=== PATIENT | female | born 1985 | race Caucasian/White ===

== ENCOUNTER 2018-09-29 11:22 | Outpatient (CLI) | payer MEDICAID ==
[~2018-09-29] VITALS: Ht 144.8 cm; Wt 74.7 kg
[~2018-09-29 11:22] MED LIST: IBUP-1542 PO; NPH10OT RIGHT EAR
[2018-09-29 11:27] VITALS: BP 138/73; PULSE 73; RESP 18
[2018-09-29 11:29] VITALS: Ht 144.8 cm; Wt 74.7 kg
--- NOTE | 2018-09-29 16:35 | PN ---
Triage Information Date/Time September 29, 2018 Reason for visit: Patient here to triage for rule out PIH was sent from [facility] clinic. Had been followed in T clinic Weeks of Gestation 35 weeks /Para 5 para 2 Diabetes: none Hypertention: none Additional information 33-year-old G5, P2 with IUP at 35 weeks she was sent from T clinic due to borderline elevated blood pressure in the range of 130s over 40s over 80s to 90s. She denies any headache, blurred vision, epigastric pain or right upper quadrant pain. Patient denies any leaking of fluid, vaginal bleeding or decreased movement Patient reports swelling of her hands for the past few weeks as well as itching of the palms of her hands for the past month. She reports some numbness of the hands at nighttime specifically as well as itching of palms at night. She had not done labs for bile acids. Objective Vital Signs Date Temp Pulse Resp B/P (MAP) Pulse Ox O2 O2 Flow FiO2 Time Delivery Rate 09/29/18 97.8 73 18 138/73 Room Air 11:27 (94) Heart Rate: 130's Heart Rate Comments Category 1 and appropriate for gestational age Contractions: None Exam Appearance: Alert and oriented x4 does not appear to be in any acute distress Abdomen: Soft, gravid, fundal height consider gestational age NST: Category 1 BP: 8/8 SHANNON: 10.3 PIH labs are normal Laboratory Tests Test 09/29/18 11:41 09/29/18 12:27 Urine Color STRAW Urine Clarity CLEAR Urine pH 8.0 Urine Specific [place] 1.005 Urine Ketones NEGATIVE Urine Nitrite NEGATIVE Urine Bilirubin NEGATIVE Urine Urobilinogen NEGATIVE Urine Leukocyte Esterase NEGATIVE Urine Hemoglobin NEGATIVE Urine Glucose NEGATIVE Urine Total Protein NEGATIVE White Blood Count 8.4 Red Blood Count 4.10 L Hemoglobin 11.8 L Hematocrit 35.2 L Mean Corpuscular Volume 85.9 Mean Corpuscular Hemoglobin 28.8 L Mean Corpuscular Hemoglobin Concent 33.5 Red Cell Distribution Width 12.3 Platelet Count 259 Mean Platelet Volume 11.0 H Immature Granulocytes % 0.500 H Neutrophils % 68.6 Lymphocytes % 23.8 Monocytes % 5.6 Eosinophils % 1.1 Basophils % 0.4 Nucleated Red Blood Cells % 0.0 Immature Granulocytes # 0.040 H Neutrophils # 5.7 Lymphocytes # 2.0 Monocytes # 0.5 Eosinophils # 0.1 Basophils # 0.0 Nucleated Red Blood Cells # 0.0 Prothrombin Time 13.7 Prothrombin Time Ratio 1.1 INR International Normalized Ratio 1.04 Activated Partial Thromboplast Time 28.7 Fibrinogen 576.0 H Sodium Level 138 Potassium Level 3.9 Chloride Level 110 Carbon Dioxide Level 20 L Anion Gap 8 Blood Urea Nitrogen 7 Creatinine 0.45 Est Glomerular Filtrat Rate mL/min > 60 Glucose Level 90 Uric Acid 4.4 Calcium Level 8.9 Total Bilirubin 0.7 Direct Bilirubin 0.00 Indirect Bilirubin 0.7 Aspartate Amino Transf (AST/SGOT) 22 Alanine Aminotransferase (ALT/SGPT) 23 Alkaline Phosphatase 167 H Total Protein 6.7 Albumin 3.3 Globulin 3.40 H Albumin/Globulin Ratio 0.97 VS - Last 72 Hours, by Label Date Temp Pulse Resp B/P (MAP) Pulse Ox O2 O2 Flow FiO2 Time Delivery Rate 09/29/18 97.8 73 18 138/73 Room Air 11:27 (94) Results/Medications Result Diagram: 09/29/18 1227 09/29/18 1227 Results 24 hrs Laboratory Tests Test 09/29/18 11:41 09/29/18 12:27 Urine Color STRAW Urine Clarity CLEAR Urine pH 8.0 Urine Specific [place] 1.005 Urine Ketones NEGATIVE Urine Nitrite NEGATIVE Urine Bilirubin NEGATIVE Urine Urobilinogen NEGATIVE Urine Leukocyte Esterase NEGATIVE Urine Hemoglobin NEGATIVE Urine Glucose NEGATIVE Urine Total Protein NEGATIVE White Blood Count 8.4 Red Blood Count 4.10 L Hemoglobin 11.8 L Hematocrit 35.2 L Mean Corpuscular Volume 85.9 Mean Corpuscular Hemoglobin 28.8 L Mean Corpuscular Hemoglobin Concent 33.5 Red Cell Distribution Width 12.3 Platelet Count 259 Mean Platelet Volume 11.0 H Immature Granulocytes % 0.500 H Neutrophils % 68.6 Lymphocytes % 23.8 Monocytes % 5.6 Eosinophils % 1.1 Basophils % 0.4 Nucleated Red Blood Cells % 0.0 Immature Granulocytes # 0.040 H Neutrophils # 5.7 Lymphocytes # 2.0 Monocytes # 0.5 Eosinophils # 0.1 Basophils # 0.0 Nucleated Red Blood Cells # 0.0 Prothrombin Time 13.7 Prothrombin Time Ratio 1.1 INR International Normalized Ratio 1.04 Activated Partial Thromboplast Time 28.7 Fibrinogen 576.0 H Sodium Level 138 Potassium Level 3.9 Chloride Level 110 Carbon Dioxide Level 20 L Anion Gap 8 Blood Urea Nitrogen 7 Creatinine 0.45 Est Glomerular Filtrat Rate mL/min > 60 Glucose Level 90 Uric Acid 4.4 Calcium Level 8.9 Total Bilirubin 0.7 Direct Bilirubin 0.00 Indirect Bilirubin 0.7 Aspartate Amino Transf (AST/SGOT) 22 Alanine Aminotransferase (ALT/SGPT) 23 Alkaline Phosphatase 167 H Total Protein 6.7 Albumin 3.3 Globulin 3.40 H Albumin/Globulin Ratio 0.97 Imaging Results PROCEDURE: OB ultrasound for biophysical profile CLINICAL INDICATION: Contractions. TECHNIQUE: Multiple sonographic images of the pelvis were obtained. Transabdominal view of the gravid uterus are available for review. The images were reviewed on a PACS workstation. COMPARISON: None FINDINGS: breathing movement = 2/2 tone = 2/2 motion = 2/2 Quantitative amniotic fluid volume = 2/2 SHANNON = 10.3 cm Single live intrauterine with cardiac activity at 144 beats per minute. There is a anterior placenta without previa or abruption. IMPRESSION: 1. Single living intrauterine gestation in cephalic position. 2. Biophysical profile = 8/8. 3. SHANNON = 10.3 cm. RPTAT: AAC Disposition: Discharge Assessment/Plan IUP at 35 weeks Borderline elevated blood pressure during office clinic visit. Blood pressures during observation in triage are all within normal limit between 120s 130s over 70s PIH labs are negative Patient reports itching of palms for the past month. Cholestasis cannot be ruled out LFTs are normal Bile acids has been drawn today Recommended the patient to start and continue until results of the Bile acids are back. Strct PTL precaution and FKC discussed Advised to continue Ursodiol, continue NST biweekly until rule out for Cholestasis of . Patient verbalized understanding importance of these follow-up as well as risks related to potentially possibility of cholestasis of and possibility of delivery in case cholestasis has been confirmed. I advised the patient to have rest strict preeclampsia precautions were discussed with signs and symptoms.. Patient verbalized understanding all above discussion and agreed to comply with instruction All questions were answered to patient's best satisfaction MARYANN DAVIS MD Sep 29, 2018 16:35
== END 2018-09-29 13:57 | disposition home or self-care (01) ==
LOC: OBT 11:22 → L-D 11:22 → OBT 13:57
PROVIDERS: ATTEND Obstetrics & Gynecology
DX: O13.3 Gestational [pregnancy-induced] hypertension without significant proteinuria, third trimester (principal); Z3A.35 35 weeks gestation of pregnancy
CPT/HCPCS: 76818; 80053; 81003; 83789; 84560; 85025; 85384; 85610; 85730; Z7500; G0463

== ENCOUNTER 2018-10-03 10:13 | Outpatient (CLI) | payer MEDICAID ==
[~2018-10-03] VITALS: Ht 144.8 cm; Wt 75.3 kg
[2018-10-03 10:36] VITALS: Ht 144.8 cm; Wt 75.3 kg
[2018-10-03 10:37] VITALS: BP 128/82; PULSE 76; RESP 18
--- NOTE | 2018-10-03 12:18 | TRIAGE ---
OB Triage Datetime Report Generated by CPN: 10/03/2018 12:18 Datetime: 10/03/2018 11:30 Stage of : OB Triage Maternal Assessment Level of Consciousness: Keenly Alert, Responsive Labor Evaluation Frequency: 2UC/HR Monitor Mode: External Duration (sec)2399: 40-60 Quality: Mild Resting Tone [place]: Relaxed Heart Rate FHR Baseline Rate: 135 Monitor Mode: External US Variability: Moderate 6-25 bpm Accelerations: 15X15 Decelerations: None Category: Category I Pain Assessment Pain Scale: 0 Pain Goal: 3 Vaginal Exam Membrane Status: Intact Vaginal Bleeding: None Datetime: 10/03/2018 10:57 Assessment Type: Triage Maternal Assessment Level of Consciousness: Keenly Alert, Responsive DTR's/Clonus: DTRs 2+; No Clonus Headache: Denies Blurred Vision: No Respiratory Effort: Unlabored; Regular Rhythm; Equal Expansion Breath Sounds, Left: Clear and Equal Breath Sounds, Right: Clear and Equal Nausea/Vomiting: Denies RUQ Epigastric Pain: Denies Lower Extremities Edema: None Degree: None Upper Extremities Edema: None Degree: None Facial Edema: None Fall Risk Assessment History of Falling: (0) No Secondary Diagnosis: (0) No Ambulatory Aid: (0) Bedrest/Nurse Assist IV Therapy: (0) No Gait: (0) Normal/Bedrest/Immobile Mental Status: (0) Oriented to Own Ability Fall Score: 0 Fall Risk Score Definition: No Risk: No action required Datetime: 10/03/2018 10:55 Time of Arrival: 10/03/2018 10:08 EGA: 35.4 Arrived By: Ambulatory Arrived From: Other Unit in Hospital Chief Complaint: PT. SENT FROM NST CLINIC FOR EVAL. OF HBP Movement: Present Contractions: Denies/Absent Rupture of Membranes: Denies Vaginal Bleeding: None Vaginal Discharge: Denies Recent Sexual Intercouse: Denies Abdominal Trauma: Not Applicable Patient Complaints: None Time Provider Notified: 10/03/2018 10:43 Provider Notified: ESHAGHIAN Initial Plan: PIH PANEL Datetime: 10/03/2018 10:30 Monitor Mode: External Monitor Mode: External US Datetime: 09/29/2018 11:36 Stage of : OB Triage Headache: Denies Blurred Vision: No RUQ Epigastric Pain: Denies Facial Edema: None Labor Evaluation Frequency: occ Monitor Mode: External Quality: Mild Pattern: Normal: <= 5 Contractions in 10 Minutes Resting Tone [place]: Relaxed Heart Rate FHR Baseline Rate: 150 Monitor Mode: External US FHR Baseline Changes: No Baseline Change Variability: Moderate 6-25 bpm Accelerations: 15X15 Decelerations: None Category: Category I Pain Presence: None/Denies Vaginal Exam Membrane Status: Intact Datetime: 09/29/2018 11:26 Stage of : OB Triage Maternal Assessment Level of Consciousness: Keenly Alert, Responsive DTR's/Clonus: DTRs 2+; No Clonus Headache: Denies Blurred Vision: No Respiratory Effort: Unlabored; Regular Rhythm; Equal Expansion Breath Sounds, Left: Clear and Equal Breath Sounds, Right: Clear and Equal Nausea/Vomiting: Denies RUQ Epigastric Pain: Denies Lower Extremities Edema: None Degree: None Upper Extremities Edema: None Degree: None Facial Edema: None Temperature Route: Oral Fall Risk Assessment History of Falling: (0) No Secondary Diagnosis: (0) No Ambulatory Aid: (0) Bedrest/Nurse Assist IV Therapy: (0) No Gait: (0) Normal/Bedrest/Immobile Mental Status: (0) Oriented to Own Ability Fall Score: 0 Fall Risk Score Definition: No Risk: No action required Monitor Mode: External Heart Rate FHR Baseline Rate: 150 Monitor Mode: External US Variability: Moderate 6-25 bpm Accelerations: 15X15 Decelerations: None Category: Category I Pain Assessment Pain Scale: 0 Datetime: 09/29/2018 11:24 Monitor Mode: External Monitor Mode: External US Datetime: 09/29/2018 09:24 Time of Arrival: 09/29/2018 11:20 EGA: 35.0 Arrived By: Ambulatory Arrived From: Office Chief Complaint: high blood pressure Movement: Present Contractions: Denies/Absent Rupture of Membranes: Denies Vaginal Bleeding: None Vaginal Discharge: Denies Recent Sexual Intercouse: Denies Abdominal Trauma: Not Applicable Patient Complaints: Other Time Provider Notified: 09/29/2018 11:48 Provider Notified: Dr Hernandez Initial Plan: efm/ pih panel, U/S for BPP
--- NOTE | 2018-10-03 12:29 | PREOPHP ---
DATE OF ADMISSION: 10/03/2018 HISTORY OF PRESENT ILLNESS: Ms. Sanchez Zheng is a 33-year-old 5, para 2, EDC 11/03/2018 in trauterine at 35 weeks and 4 days gestational age, was sent from [facility] clinic for rule out pr eeclampsia. She denies any headache, nausea, vomiting, shortness of breath, visual changes. Her blo od pressures have been all within normal, blood pressure of 128/82, pulse 76, respirations 18, temper ature 98.0. MEDICAL HISTORY: Chronic hypertension with possible cholestasis of . MEDICATIONS: Labetalol and the patient was given a prescription last week for Actigall, however, has been noncompliant. PAST SURGICAL HISTORY: x2 previous section. OBSTETRICAL HISTORY: x2 previous section, x2 missed AB. GYNECOLOGIC HISTORY: 12, regular 3 to 4 days. Denies any sexually transmitted infections. Sexually active with 1 partner. SOCIAL HISTORY: Denies any smoking, drugs or alcohol. FAMILY HISTORY: None. REVIEW OF SYSTEMS: All within normal except history of present illness. PHYSICAL EXAMINATION: HEENT: Within normal. LUNGS: CTA. CARDIOVASCULAR: S1, S2, regular rhythm. ABDOMEN: Gravid, nontender. Negative CVA bilateral. EXTREMITIES: No calf tenderness. PELVIC: Vaginal exam deferred. heart tracing category 1. [place]: No contractions. ASSESSMENT: Intrauterine at 35 weeks and 4 days gestational age with chronic hypertension. No signs or symptoms of preeclampsia. PLAN: Discharged home and scheduled for repeat delivery on 10/20/2018. Dictated By: ROSEY YARBROUGH/JR Conf#: [id number] DID#: [id number]
--- NOTE | 2018-10-03 22:45 | NSTRPT ---
NST Information Datetime Report Generated by CPN: 10/03/2018 22:44 Datetime: 10/03/2018 08:17 NST Information EGA: 35.4 Test Number: 2 Time on Monitor: 10/03/2018 08:40 Time off Monitor: 10/03/2018 09:06 NST Duration (Min): 26 Reason for NST: Gestational Hypertension; Other Reason for NST Other: cholestasis Test and Monitor Explained: Monitor Explained; Test Explained; Verbalized Understanding Pulse: 72 Resp: 18 SBP: 144 DBP: 91 Test Evaluation NST Interventions: None Patient States Movement: Present Contraction Frequency: x1/60/mild/pain level 0 FHR Baseline : 135 Variability: Moderate 6-25bpm Accelerations: 15X15 Decelerations: None FHR Category: Category I NST Results: Reactive Provider Notified: 913 Dr Price Comments: To u/s SHANNON 16.5 CM CEPHALIC Pt sent to triage 09/29 with BP 137/94-PIH labs done _ pt sent home. Pt had a prescription for labe talol which she did not fill. Still does has not filled her prescription _ states she does not have i t anymore. States she does not want to take the medication because her BP goes down on its own during her visits _ she does not want to take medication she does not think is necessary. Need to fill her prescription discussed along with preeclampsia symptoms, which she denies having. Repeat BP 134/87, 129/87. Reported to Dr Price re elevated BPs, did not fill labetalol prescriptio n, co swelling of her hands but no epigatric pain, blurred vision or CHUA. Got a prescription for actig al on 09/29 which she has not filled. Bile acids 103. Dr Price recommends pt go to triage for assessme nt. 0915 Dr Hernandez given report re BPs, bile acids, labwork results from 09/29 _ pt has not filled prescriptions. States she had elevateed BPs with her other preganacies _ needed to be delivered early . Report to Diana Goss RN, records _ preliminary US report faxed to triage Electronically Signed By E-Signature: with User ID: [id number] Datetime: 09/29/2018 09:23 NST Information EGA: 35.0 Datetime: 09/29/2018 09:12 Test Number: 1 Time on Monitor: 09/29/2018 09:47 Time off Monitor: 09/29/2018 10:34 NST Duration (Min): 47 Reason for NST: Gestational Hypertension Test and Monitor Explained: Monitor Explained; Test Explained; Verbalized Understanding Pulse: 67 Resp: 20 SBP: 140 DBP: 80 Test Evaluation NST Interventions: Reposition Patient NST Interventions Other: DECEL NOTED AT 1002 FROM BASELINE 135 TO 110. RESOLVED WITH POSITION MICHAEL NGE. Patient States Movement: Present Contraction Frequency: NONE FHR Baseline : 135 Variability: Moderate 6-25bpm Accelerations: 15X15 Decelerations: Prolonged FHR Category: Category II NST Results: Reactive Provider Notified: Dr Price/ Dr Hernandez Comments: To US SHANNON-12.4 CM, CEPHALIC. 137/94, 142/89. DENIES H/A OR BLURRED VISION, NO EDEMA NOTED , DTR'S 2+. WAS GIVEN PRESCRIPTION FOR LABETALOL IN THE CLINIC BUT DID NOT TAKE BECAUSE "I DON'T LIKE TAKING TOO MANY MEDICATIONS." DOUGLAS PICKETT CALLED DR PRICE-PT SENT TO TRIAGE FOR FOLLOW UP Report to Dr Hernandez _ orders received for extended monitoring _ labwork in triage. Report to Me anahi Goss RN _ records _ preliminary US report faxed to triage
--- NOTE | 2018-10-03 22:47 | NSTRPT ---
NST Information Datetime Report Generated by CPN: 10/03/2018 22:46 Datetime: 09/29/2018 09:12 Electronically Signed By E-Signature: with User ID: [id number]
== END 2018-10-03 12:26 | disposition home or self-care (01) ==
LOC: OBT 10:13 → L-D 10:14 → OBT 12:26
PROVIDERS: ATTEND Obstetrics & Gynecology
DX: O10.913 Unspecified pre-existing hypertension complicating pregnancy, third trimester (principal); Z3A.35 35 weeks gestation of pregnancy
CPT/HCPCS: 80053; 81001; 82150; 83690; 84560; 85025; 85384; 85610; 85730; Z7500; 81003; G0463

== ENCOUNTER 2018-10-17 11:15 | Inpatient (IN) | payer MEDICAID ==
[~2018-10-17] VITALS: Ht 152.4 cm; Wt 76.5 kg
[2018-10-17 11:33] VITALS: BMI 32.9
--- NOTE | 2018-10-17 11:41 | TRIAGE ---
OB Triage Datetime Report Generated by CPN: 10/17/2018 11:41 Datetime: 10/17/2018 11:30 Maternal Assessment Level of Consciousness: Keenly Alert, Responsive DTR's/Clonus: DTRs 1+ Headache: Denies Blurred Vision: No Respiratory Effort: Unlabored Breath Sounds, Left: Clear and Equal Breath Sounds, Right: Clear and Equal Nausea/Vomiting: Denies RUQ Epigastric Pain: Denies Facial Edema: None Labor Evaluation Frequency: 2-5 Monitor Mode: External Duration (sec)2399: 40-70 Quality: Mild Pattern: Normal: <= 5 Contractions in 10 Minutes Resting Tone [place]: Relaxed Heart Rate FHR Baseline Rate: 125 Monitor Mode: External US Variability: Moderate 6-25 bpm Accelerations: 15X15 Decelerations: None Category: Category I Pain Assessment Pain Scale: 0 Pain Presence: None/Denies Pain Type: N/A Pain Goal: 3 Vaginal Exam Membrane Status: Intact Datetime: 10/17/2018 11:10 Stage of : OB Triage Datetime: 10/17/2018 10:53 Time of Arrival: 10/17/2018 10:53 EGA: 37.4 Arrived By: Ambulatory Arrived From: Office Chief Complaint: PT CAME IN FROM CLINIC DUE TO HIGH BLOOD PRESSURE Movement: Present Contractions: Denies/Absent Rupture of Membranes: Denies Vaginal Discharge: Denies Recent Sexual Intercouse: Denies Abdominal Trauma: Not Applicable Additional Patient Complaints: NONE Time Provider Notified: 10/17/2018 11:10 Provider Notified: NILE Initial Plan: [facility] PANEL AND ADMITTED TO LABOR AND DELIVERY FOR REPEAT Datetime: 10/03/2018 10:57 Fall Risk Assessment Fall Score: 0 Fall Risk Score Definition: No Risk: No action required Datetime: 10/03/2018 10:55 EGA: 35.4 Datetime: 09/29/2018 11:32 Presentation 'A': Cephalic Datetime: 09/29/2018 11:26 Fall Risk Assessment Fall Score: 0 Fall Risk Score Definition: No Risk: No action required Datetime: 09/29/2018 09:24 EGA: 35.0
[2018-10-17] MEDS ORDERED: CEFAZOLIN 2 GM/50 ML (PMX) 50 ML IVPB SCH ×2 (12:00→14:00)
[2018-10-17] MEDS ORDERED: MISOPROSTOL 200 MCG TAB PR PRN ×2 (12:00→14:00)
[2018-10-17] MEDS ORDERED: OXYTOCIN 30 UNITS/LR 500 ML IV PRN ×2 (12:00→14:00)
[2018-10-17] MEDS ORDERED: OXYTOCIN 30 UNITS/LR 500 ML IV SCH (12:00)
[2018-10-17] MEDS ORDERED: METHYLERGONOVINE 0.2 MG INJ IM PRN ×2 (12:00→14:00)
[2018-10-17] MEDS ORDERED: CARBOPROST 250 MCG INJ IM PRN ×2 (12:00→14:00)
[2018-10-17 12:01] VITALS: Ht 152.4 cm; Wt 76.5 kg
[2018-10-17] MEDS: LACTATED RINGER'S 1,000 ML IV SCH ×3 (12:23→20:37)
--- NOTE | 2018-10-17 12:35 | PREAC ---
Date/Time of Note Date/Time of Note DATE: 10/17/18 TIME: 12:34 Anesthesia Eval and Record Evaluation Time Pre-Procedure Interview DATE: 10/17/18 TIME: 12:34 Age 33 Sex female NPO: 8 hrs Preoperative diagnosis repeat c section in labor and high bP Planned procedure c section Past Medical History Past Medical History: Includes : PIH, Other Surgery & Anesthesia Issues No known issue Meds Anticoagulation: No Beta Rhoda within 24 hr: No Reason Beta Rhoda not given: Pt. not on B-Rhoda No Active Prescriptions or Reported Meds Current Medications Lactated Ringer's 1,000 ml @ 125 mls/hr Q8H IV Last administered on 10/17/18at 12:23; Admin Dose 125 MLS/HR; Start 10/17/18 at 11:54 Cefazolin Sodium/ Dextrose 50 ml @ 100 mls/hr ONCE IVPB ; Start 10/17/18 at 12:00 Oxytocin/Lactated Ringer's 500 ml @ 125 mls/hr POST IV ; Start 10/17/18 at 12:00 Oxytocin/Lactated Ringer's 500 ml @ 0 mls/hr ONCE PRN IV .VAGINAL BLEEDING; Start 10/17/18 at 12:00 Methylergonovine Maleate (Methergine) 0.2 mg ONCE PRN IM .VAGINAL BLEEDING; Start 10/17/18 at 12:00 Carboprost Tromethamine (Hemabate) 250 mcg ONCE PRN IM .VAGINAL BLEEDING; Start 10/17/18 at 12:00 Misoprostol (Cytotec) 1,000 mcg ONCE PRN MO .VAGINAL BLEEDING; Start 10/17/18 at 12:00 Meds reviewed: Yes Allergies Coded Allergies: No Known Drug Allergy (Verified Allergy, Unknown, 10/17/18) Allergies Reviewed: Yes Labs/Studies Labs Reviewed: Reviewed by anesthesiologist Result Diagram: 10/17/18 1207 Laboratory Tests 10/17/18 12:07 test: Positive Studies: ECG (n/a), CXR (n/a) Pre-procedure Exam Airway: Adequate mouth opening Mallampati: Mallampati I Teeth: Normal Lung: Normal Heart: Normal ASA Physical Status ASA physical status: 2 Emergency: None Planned Anesthetic Neuraxial: Spinal Planned Pain Management Sub-arachniod narcotics Pre-operative Attestations Prior to commencing anesthesia and surgery, the patient was re-evaluated, there was verification of: *The patient's identity *The results of appropriate recent lab work and preoperative vital signs *The above evaluation not changing prior to induction *Anesthetic plan, risk benefits, alternative and complications discussed with patient/family; questions answered; patient/family understands, accepts and wishes to proceed. SHANNON MARTINEZ MD Oct 17, 2018 12:35
[2018-10-17] MEDS ORDERED: OXYTOCIN 30 UNITS/LR 500 ML IV ONE ×2 (13:06→13:53)
[2018-10-17] MEDS ORDERED: METOCLOPRAMIDE 10 MG INJ ONE (13:06)
[2018-10-17] MEDS ORDERED: KETOROLAC 30 MG INJ ONE (13:06)
[2018-10-17] MEDS ORDERED: ONDANSETRON 4 MG INJ ONE (13:06)
[2018-10-17] MEDS ORDERED: morphine SULFATE/PF (10 MG/10 ML) INJ ONE (13:06)
[2018-10-17] MEDS ORDERED: EPHEDrine SULFATE 50 MG/5 ML SYG ONE (13:24)
--- NOTE | 2018-10-17 13:57 | OPPN ---
Date/Time of Note Date/Time of Note DATE: 10/17/18 TIME: 13:55 Operative Report Planned Procedure Procedure date Oct 17, 2018 Procedure(s) repeat low transverse CD Performed by see signature line Business Operations Consultant: ELAN ECHEVERRIA MD 2nd Business Operations Consultant none Anesthesiologist: SHANNON MARTINEZ MD Pre-procedure diagnosis iup at 37 wks ga, gestational hypertension, in labor, previous CD, desires elective CD, decline [id number] Anesthesia Type: [id number] spinal Post-Procedure Post-procedure diagnosis same Findings a viable male 7/9 weight 2,285 grams, normal uterus tubes and ovaries. Estimated Blood Loss: 500 - 600 mls Specimen(s) none Grafts/Implant(s) none Complication(s) none ROSEY DOWD MD Oct 17, 2018 13:57
[2018-10-17] MEDS ORDERED: NACL 0.9% 3 ML SYG IV SCH (14:00)
[2018-10-17] MEDS ORDERED: OXYCODONE/ACETAMINOPHEN (5/325) TAB PO PRN (14:00)
[2018-10-17] MEDS ORDERED: IBUPROFEN 800 MG TAB PO SCH (14:00)
[2018-10-17] MEDS ORDERED: ONDANSETRON 4 MG INJ IV PRN ×2 (14:30)
[2018-10-17] MEDS ORDERED: DIPHENHYDRAMINE 50 MG INJ IV PRN ×2 (14:30)
[2018-10-17] MEDS ORDERED: morphine 2 MG INJ IV PRN ×6 (14:30)
[2018-10-17] MEDS ORDERED: KETOROLAC 30 MG INJ IV PRN ×2 (14:30)
[2018-10-17] MEDS ORDERED: NALOXONE (0.4 MG/ML) INJ IV PRN (14:30)
--- NOTE | 2018-10-17 14:47 | PREOPHP ---
DATE OF ADMISSION: 10/17/2018 HISTORY OF PRESENT ILLNESS: The patient is a 33-year-old 5, para 2, EDC 11/03/2018, intraute rine at 37 weeks' gestational age, was sent from clinic today for evaluation of elevated sy stolic blood pressure greater than 160 and patient also complaining of regular contractions since ear ly this morning. Pain scale of 5/10. She has a significant history of 2 previous C-sections and brennon ires elective repeat delivery and declines . She denies any headache, nausea, vomiting, shortness of breath, visual change, or epigastric pain. MEDICAL HISTORY: Gestational hypertension. MEDICATIONS: 1. Labetalol 100 mg p.o. b.i.d. 2. vitamins. PAST SURGICAL HISTORY: x2 previous section. OBSTETRICAL HISTORY: x2 previous C-sections, x2 missed AB. GYNECOLOGIC HISTORY: 12, regular 3 to 4 days. Denies any sexually transmitted infections. Sexually active with 1 partner. SOCIAL HISTORY: Denies any smoking, drugs or alcohol. FAMILY HISTORY: None. REVIEW OF SYSTEMS: All within normal except history of present illness. PHYSICAL EXAMINATION: VITAL SIGNS: Vital signs are currently stable, afebrile. HEENT: Within normal. LUNGS: CTA bilateral. CARDIOVASCULAR: S1, S2, regular rhythm. ABDOMEN: Gravid, nontender. Negative CVA tenderness, no epigastric tenderness. EXTREMITIES: Negative edema. No calf tenderness. PELVIC: Vaginal exam 150 -2. heart tracing category 1, [place] regular contractions. ASSESSMENT: 1. Intrauterine at 37 weeks gestational age, in labor. 2. Gestational hypertension. 3. Previous section x2, desires elective repeat delivery. Declined vaginal after . PLAN: Consent for repeat delivery. Risks, benefits and alternatives explained. All questi ons were answered. Dictated By: ROSEY YARBROUGH/JR Conf#: [id number] DID#: [id number]
--- NOTE | 2018-10-17 14:52 | OPR ---
DATE OF OPERATION: 10/17/2018 PRIMARY DIAGNOSES: Intrauterine at 37 weeks gestational age, gestational hypertension in l abor, previous , desires elective repeat delivery. Declined . POSTOPERATIVE DIAGNOSES: Intrauterine at 37 weeks gestational age, gestational hypertensio n in labor, previous , desires elective repeat delivery. Declined . OPERATION PERFORMED: Repeat low transverse delivery. SURGEON: Rosey Hernandez MD FLATBED TRUCK DRIVER: Dr. Mederos. ANESTHESIA: Spinal. COMPLICATIONS: None. ESTIMATED BLOOD LOSS: 500 mL. FINDINGS: A viable male, 7 and 9 respectively at 1 and 5 minutes, weight 2825 grams. Normal u terus, tubes and ovaries. DESCRIPTION OF PROCEDURE: After explaining the risks, benefits and alternatives, the patient and con sent signed in chart, the patient was taken to the operating room where spinal anesthesia was found t o be adequate. She was then prepared and draped in normal sterile fashion in dorsal position with a leftward tilt. A Pfannenstiel skin incision was made with a scalpel and carried to the underlying of the fascia. The fascia was incised in the midline and the incision was extended laterally with Monteiro scissors. The superior aspect of the fascial incision was grasped with curved clamps, elevated and the underlying rectus muscles dissected off bluntly. Attention was then turned to the inferior aspec t of the incision which in similar fashion was grasped, tented up with curved clamps and rectus muscl es dissected off bluntly. The rectus muscle was in midline, peritoneum identified, tented up and entered sharply with Metzenbaum scissors. The peritoneal incision was extended superiorly wit h good visualization of bladder. The bladder blade was inserted and the lower segment incised in tra nsverse fashion with the scalpel. The uterine incision was extended laterally and the bladder flap r emoved and the 's head delivered atraumatically. The nose and mouth were suctioned and cord cl amped and cut and the infant was handed off to waiting trouble shooting mechanic. The placenta was then removed. The uterus extracted, cleared of all clots and debris. The uterine incision was repaired with 1-0 c hromic in a running locked fashion. A second layer of same suture was used for imbrication obtaining excellent hemostasis. The uterus was returned to the abdomen. The gutters were cleared of all clot s. The peritoneum and rectus abdominis muscles reapproximated with 2-0 Monocryl in an interrupted fa shion. Fascia was repaired with 3-0 Vicryl in a running fashion. The subcutaneous tissue was reappr oximated with 2-0 plain gut in a running fashion. The skin was closed with absorbable gurwinder. The patient tolerated procedure well. Sponge, lap, needle counts were correct. The patient was taken to recovery room in stable condition. Dictated By: ROSEY YARBROUGH/JR Conf#: [id number] DID#: [id number]
[2018-10-17 15:15] VITALS: BP 134/84; PULSE 62; RESP 20
[2018-10-17] MEDS: OXYTOCIN 30 UNITS/LR 500 ML IV SCH ×2 (15:15→17:26)
[2018-10-17 16:00] VITALS: BP 125/80; PULSE 64; RESP 18
[2018-10-17] MEDS: LANOLIN HPA 1 PKT TOP PRN (17:22)
[2018-10-17 19:30] VITALS: BP 135/72; PULSE 78; RESP 18
[2018-10-17] MEDS: CEFAZOLIN 2 GM/50 ML (PMX) 50 ML IVPB SCH (22:04)
[2018-10-18] VITALS: BP 112/62; PULSE 64; RESP 18
[2018-10-18 04:05] VITALS: BP 124/78; PULSE 70; RESP 18
[2018-10-18] MEDS: LACTATED RINGER'S 1,000 ML IV SCH ×3 (04:55→19:30)
[2018-10-18] MEDS: CEFAZOLIN 2 GM/50 ML (PMX) 50 ML IVPB SCH ×2 (05:57→14:20)
[2018-10-18 08:00] VITALS: BP 111/62; PULSE 71; RESP 18
--- NOTE | 2018-10-18 08:17 | PAC ---
Date/Time of Note Date/Time of Note DATE: 10/18/18 TIME: 08:17 Post-Anesthesia Notes Post-Anesthesia Note Last documented vital signs Vital Signs Date Temp Pulse Resp B/P (MAP) Pulse Ox O2 O2 Flow FiO2 Time Delivery Rate 10/18/18 98.4 70 18 124/78 98 Room Air 04:05 (93) 10/18/18 97 00:00 Activity: WNL Respiratory function: WNL Cardiovascular function: WNL Mental status: Baseline Pain reasonably controlled: Yes Hydration appropriate: Yes Nausea/Vomiting absent: No SHANNON MARTINEZ MD Oct 18, 2018 08:17
--- NOTE | 2018-10-18 08:18 | OPPN ---
Date/Time of Note Date/Time of Note DATE: 10/18/18 TIME: 08:17 Anesthesia Follow up Anesthesia Follow up Last documented vital signs Vital Signs Date Temp Pulse Resp B/P (MAP) Pulse Ox O2 O2 Flow FiO2 Time Delivery Rate 10/18/18 98.4 70 18 124/78 Room Air 04:05 (93) 10/18/18 97 00:00 Respiratory function: WNL Cardiovascular function: WNL Comments A 33 year s/p spinal duramorph for post op pain, post op day #1 is fine, no headache, pain, N/V, itching, neural deficit. SHANNON MARTINEZ MD Oct 18, 2018 08:18
[2018-10-18 12:00] VITALS: BP 119/66; PULSE 65; RESP 18
[2018-10-18] MEDS: IBUPROFEN 800 MG TAB PO SCH ×2 (15:21→21:31)
[2018-10-18 16:00] VITALS: BP 130/69; PULSE 68; RESP 19
--- NOTE | 2018-10-18 18:31 | QN ---
Documentation Comment progress note pod 1 patient seen and evaluated no complaints vs stable afebrile ab c/d/i no distention extremity no edema no calf tenderness a sp cd pod 1 stable afebrile p/ iron supplement encourage ambulation ROSEY DOWD MD Oct 18, 2018 18:31
[2018-10-18 19:55] VITALS: BP 116/65; PULSE 70; RESP 18
[2018-10-18] MEDS: FERROUS SULFATE (EC) 325 MG TAB PO SCH (21:30)
[2018-10-18] MEDS: OXYCODONE/ACETAMINOPHEN (5/325) TAB PO PRN (23:55)
[2018-10-19] VITALS: BP 128/74; PULSE 66; RESP 18
[2018-10-19] MEDS: LACTATED RINGER'S 1,000 ML IV SCH ×2 (03:30→11:30)
[2018-10-19 04:40] VITALS: BP 118/63; PULSE 68; RESP 18
[2018-10-19] MEDS: IBUPROFEN 800 MG TAB PO SCH ×3 (05:47→21:39)
[2018-10-19 08:00] VITALS: BP 126/72; PULSE 66; RESP 19
[2018-10-19] MEDS: FERROUS SULFATE (EC) 325 MG TAB PO SCH ×2 (09:08→20:52)
[2018-10-19] MEDS: LANOLIN HPA 1 PKT TOP PRN (10:50)
[2018-10-19] MEDS: OXYCODONE/ACETAMINOPHEN (5/325) TAB PO PRN ×2 (10:51→17:03)
[2018-10-19 16:00] VITALS: BP 131/76; PULSE 65; RESP 17
[2018-10-19 19:40] VITALS: BP 133/76; PULSE 56; RESP 19
--- NOTE | 2018-10-19 19:41 | QN ---
Documentation Comment progress note pod 2 patient seen and evaluated no complaints vs stable afebrile ab c/d/i no distention extremity no edema no calf tenderness a sp cd pod 2 stable afebrile p/discharge home tomorrow ROSEY DOWD MD Oct 19, 2018 19:41
--- NOTE | 2018-10-19 19:44 | PD.PPDC ---
ART HISTORIAN Discharge Instruction Condition [id number] Patient Condition: Iulbb6k Good Diet Tlszv7Ms Diet: Ahzkj0q Resume Regular Diet Activity/Restrictions Rurff5Wh Activity: Fiwug9g Normal Activity May Shower Jmtov4As Restrictions: Gjxin1t No Exercising No Lifting No Driving No Sexual Activity Nothing in the Vagina No [place] No Tampons, douche Follow-up Follow-up with Physician: 2, Week/Weeks Return to clinic for [id number] REVIEW RN Instructions: Dxmdq5d Fever greater than 101 Chills Worsening abdominal pain Excessive Vaginal Bleeding More than 2 pads per hour Unable to tolerate diet [id number] OB Instructions: Twuln2b Breast Tenderness Depression Blurried Vision Headache Ojpiz4Wt Surgical Instructions: Tyfpm3l Incisional Drainage Incisional Redness ROSEY DOWD MD Oct 19, 2018 19:44
[2018-10-20] MEDS: OXYCODONE/ACETAMINOPHEN (5/325) TAB PO PRN ×2 (00:05→12:38)
--- NOTE | 2018-10-20 02:01 | DS ---
DATE OF ADMISSION: 10/17/2018 DATE OF DISCHARGE: 10/19/2018 PRIMARY DIAGNOSIS: Intrauterine at 37 weeks gestational age, gestational hypertension in l abor, previous , desires elective repeat delivery. Declined vaginal after kenny rosales. OPERATION PERFORMED: Repeat low transverse delivery. CONDITION ON DISCHARGE: Stable. ACTIVITY: None per vagina, no lifting x6 weeks. DIET: Regular: MEDICATIONS ON DISCHARGE: 1. Motrin. 2. Iron. 3. Colace. DISCHARGE SUMMARY: Ms. Sanchez Zheng underwent a repeat low transverse delivery on 019. She had a viable male, 7 and 9 respectively at 1 and 5 minutes, weight 2825 grams. She h ad an uneventful postop day 1 and 2. She was discharged on postop day 3. Her incision is clean, dry , and intact. She is ambulating, tolerating diet, positive flatulence, positive bowel movement. She will follow up in clinic in 2 weeks for /postop care. Dictated By: ROSEY YARBROUGH/JR Conf#: [id number] DID#: [id number]
[2018-10-20 04:00] VITALS: BP 128/68; PULSE 60; RESP 18
[2018-10-20] MEDS: IBUPROFEN 800 MG TAB PO SCH (05:47)
[2018-10-20 08:00] VITALS: BP 137/82; PULSE 66; RESP 17
[2018-10-20] MEDS: FERROUS SULFATE (EC) 325 MG TAB PO SCH (09:37)
--- NOTE | 2018-10-21 17:04 | DELSUM ---
Delivery Summary A-C Datetime Report Generated by CPN: 10/21/2018 17:04 DELIVERY PERSONNEL Fisheries Manager: Sivan Sands MATERNAL INFORMATION Delivery Anesthesia: Spinal Medications in Delivery: see anesthesia Delivery QBL (ml): 500 Placenta Cultured: No Maternal Complications: Other Other Maternal Complications: HIGH BP AND IN LABOR LABOR SUMMARY EDC: 11/03/2018 00:00 No. Babies in Womb: 1 Attempted: No Labor Anesthesia: None LABOR INFORMATION Reason for Induction: Gest. HTN/PreEclam/Eclamp Group B Beta Strep: Not Done Antibiotics # of Doses: 1 Antibiotics Time of Last Dose: 10/17/2018 13:12 Steroids Given: None Reason Steroids Not Administered: Not Applicable MEMBRANES Membranes Rupture Method: Artificial Rupture of Membranes: 10/17/2018 13:31 Length of Rupture (hr): 0.02 Amniotic Fluid Color: Clear Amniotic Fluid Amount: Small Amniotic Fluid Odor: Normal STAGES OF LABOR Stage 3 hr: 0 Stage 3 min: 1 CSECTION DELIVERY Primary Indication: Repeat Elective Secondary Indication: N/A CSection Urgency: Non Elective CSection Incidence: Repeat Labor: Labor Elective: Nonelective CSection Incision: Lower Uterine Transverse BABY A INFORMATION Infant Delivery Date/Time: 10/17/2018 13:32 Method of Delivery: Born in Route : No : N/A Forceps: N/A Vacuum Extraction: N/A Shoulder Dystocia : N/A SHOULDER DYSTOCIA BABY A Infant Delivery Date/Time: 10/17/2018 13:32 PRESENTATION/POSITION BABY A Presentation: Cephalic Cephalic Presentation: Vertex Vertex Position: N/A Breech Presentation: N/A PLACENTA INFORMATION BABY A Placenta Delivery Time : 10/17/2018 13:33 Placenta Method of Delivery: Manual Removal Placenta Status: Delivered SCORES BABY A Heart Rate 1 min: >100 bpm Resp Effort 1 min: Slow, Irregular Reflex Irritability 1 min: Cough/Sneeze/Pulls Away Muscle Tone 1 min: Active Motion Color 1 min: Blue/Pale Resuscitation Effort 1 min: Tactile Stimulation SCORE 1 MIN: 7 Heart Rate 5 min: >100 bpm Resp Effort 5 min: Good Cry Reflex Irritability 5 min: Cough/Sneeze/Pulls Away Muscle Tone 5 min: Active Motion Color 5 min: Body Pierre Part, Extremit Blue Resuscitation Effort 5 min: Tactile Stimulation SCORE 5 MIN: 9 INFANT INFORMATION BABY A Gestational Age at Delivery: 37.4 Gestational Status: Early Term- 37- 38.6 Weeks Infant Outcome : Liveborn, with signs of life Infant Condition : Stable Sex: Male IDENTIFICATION/MEDS BABY A ID Band Number: [id number] ID Band Location: Right Leg; Left Arm Sensor Applied: Yes Sensor Number: [id number] Sensor Location : Cord Clamp Vitamin K Given : Not Given Erythromycin Given: Not Given WEIGHT/LENGTH BABY A Infant Birthweight (gm): 2875 Weight (lb): 6 Infant Weight (oz): 5 Infant Length (in): 18.50 Infant Length (cm): 46.99 CORD INFORMATION BABY A No. Cord Vessels: 3 Nuchal Cord : N/A Cord Blood Taken: Yes Infant Suction: Mouth; Nose ASSESSMENT BABY A Infant Complications: None Physical Findings at Delivery: Within Normal Limits Infant Respirations: Appears Normal Boat Repairer/ALS Called : Yes Care By: RT Transferred To: Remains with Mother
== END 2018-10-20 13:41 | disposition home or self-care (01) | DRG 788 ==
LOC: OBT 11:15 → L-D 11:16 → OBT 11:17 → L-D 11:17 → PP1 15:35
PROVIDERS: ADMIT Obstetrics & Gynecology; ATTEND Obstetrics & Gynecology
PROC: 3E033VJ Introduction of Other Hormone into Peripheral Vein, Percutaneous Approach (ICD-10-PCS; 2018-10-17)
PROC: 10D00Z1 Extraction of Products of Conception, Low, Open Approach (ICD-10-PCS; principal; 2018-10-17 13:15)
DX: O65.5 Obstructed labor due to abnormality of maternal pelvic organs (principal); O13.4 Gestational [pregnancy-induced] hypertension without significant proteinuria, complicating childbirth; O34.211 Maternal care for low transverse scar from previous cesarean delivery; Z3A.37 37 weeks gestation of pregnancy; Z37.0 Single live birth
CPT/HCPCS: 85025; 85610; 85730; 86592; 86850; 86900; 86901; 99464; G0463; J0690; J1885; J2274; J2405; J2590; J2765; J7120

== ENCOUNTER 2018-11-01 16:45 | Emergency (ER) | payer MEDICAID ==
[~2018-11-01] VITALS: Ht 162.6 cm; Wt 68.4 kg
[2018-11-01 16:49] VITALS: BP 124/69; PULSE 60; RESP 18; Ht 162.6 cm; Wt 68.4 kg
--- NOTE | 2018-11-01 18:39 | ERD ---
ER Documentation Chief Complaint Chief Complaint sent by Dr lopez office for high blood pressure HPI Patient is a 33-year-old female, past medical history of preeclampsia, 2 weeks post , presents the ER for concerns of an elevated blood pressure. Patient brings in a note from her CHAIR CANER's office saying that patient's blood pressure was elevated and needs to be evaluated. According to patient, blood pressure was never taken in the CHAIR CANER's office and she was just advised to come to the ER. She has no headache, blurry vision, nausea, vomiting, acute confus ion, excessive sleepiness or loss of consciousness. Patient has no leg swelling, abdominal pain, chest pain, shortness of breath. Patient has no concerns or complaints at this time and states that she only came her because she was advised to come here by her CHAIR CANER FRANCO- Deniz Tavares. ROS All systems reviewed and are negative except as per history of present illness. Medications Home Meds No Active Prescriptions or Reported Meds Allergies Allergies: Coded Allergies: No Known Drug Allergy (Verified Allergy, Unknown, 10/17/18) PMhx/Soc Hx Alcohol Use: No Hx Substance Use: No Hx Tobacco Use: No FmHx Family History: No diabetes Physical Exam Vitals Vital Signs Date Temp Pulse Resp B/P (MAP) Pulse Ox O2 O2 Flow FiO2 Time Delivery Rate 11/01/18 98.4 60 18 124/69 96 16:49 (87) Physical Exam GENERAL: Well-developed, well-nourished female. Appears in no acute distress. S peaking in full sentences. HEAD: Normocephalic, atraumatic. EYES: Pupils are equally reactive bilaterally. EOMs grossly intact. No conjunctival erythema. NECK: Supple. No meningismus. Normal range of motion of the neck. LUNG: Clear to auscultation bilaterally. No rhonchi, wheezing, rales or coarse breath sounds. HEART: Regular rate and rhythm. No murmurs, rubs or gallops. EXTREMITIES: Equal pulses bilaterally. No peripheral clubbing, cyanosis or edema. No unilateral leg swelling. No pedal swelling noted bilaterally. NEUROLOGIC: Alert and oriented x3, cooperative. Mood and affect appropriate to situation. Cranial nerves II through XII are grossly intact. Normal speech. Motor exam: 5/5 strength in upper and lower extremities. Sensory exam: Sensation intact to light touch on all four extremities. Cerebellar function exam: Rapid alternating movements intact. No dysmetria on gwgfcq-dk-fetw and pmbw-sm-lywd test. Steady gait. No pronator drift. Equal percussion instrument tuner strength noted bilaterally. SKIN: Normal color. Warm and dry. No rashes or lesions. Procedures/MDM MEDICAL DECISION MAKING: Patient is a 33-year-old female, past medical history of preeclampsia, 2 weeks , presents the ER for concerns of an elevated blood pressure. Patient was advised from the ER by her CHAIR CANER's office.. Vital signs were reviewed. Patient is afebrile. Patient was not hypoxic. Patient was hemodynamically stable. Here in the ER, patient's blood pressure readings are within normal limits. Blood pressure measured twice by triage nurse. Patient states that her blood pressure was not checked by her CHAIR CANER's office. I did speak to the PA at the patient's CHAIR CANER's office Deniz Tavares, who is states that patient's blood pressure was checked and it was within normal limits. She states that she had advised the patient to go to follow-up with her primary care physician for further management of her previously elevated blood pressures however she did not advise the patient to come to the ER. Low suspicion for CVA, TIA, preeclampsia or eclampsia at this time. Patient was nontoxic, dgm-ami-bkbysbevt prior to discharge. Patient was advised to follow-up with her primary care physician for further monitoring of her blood pressures. DISCHARGE: At this time, patient is stable for discharge and outpatient management. I have instructed the patient to follow-up with his/her primary care physician in 1-2 days. I have discussed with the patient the possibility of needing to see a specialist for further workup and imaging studies if symptoms persist. I have instructed the patient to promptly return to the ER for any new or worsening symptoms including increased pain, fever, nausea, vomiting, weakness or LOC. The patient and/or family expressed understanding of and agreement with this plan. All questions were answered. Home care instructions were provided. Disclaimer: Inadvertent spelling and grammatical errors are likely due to EHR/dictation software use and do not reflect on the overall quality of patient care. Also, please note that the electronic time recorded on this note does not necessarily reflect the actual time of the patient encounter. Departure Diagnosis: Primary Impression: Normal exam Additional Impression: History of pre-eclampsia Condition: Fair Patient Instructions: High Blood Pressure (Hypertension) Referrals: [facility] YOU HAVE RECEIVED A MEDICAL SCREENING EXAM AND THE RESULTS INDICATE THAT YOU DO NOT HAVE A CONDITION THAT REQUIRES URGENT TREATMENT IN THE EMERGENCY DEPARTMENT. FURTHER EVALUATION AND TREATMENT OF YOUR CONDITION CAN WAIT UNTIL YOU ARE SEEN IN YOUR DOCTORS OFFICE WITHIN THE NEXT 1-2 DAYS. IT IS YOUR RESPONSIBILITY TO MAKE AN APPOINTMENT FOR FOLOW-UP CARE. IF YOU HAVE A PRIMARY DOCTOR --you should call your primary doctor and schedule an appointment IF YOU DO NOT HAVE A PRIMARY DOCTOR YOU CAN CALL OUR PHYSICIAN REFERRAL HOTLINE AT IF YOU CAN NOT AFFORD TO SEE A PHYSICIAN YOU CAN CHOSE FROM THE FOLLOWING [facility] [address] [facility] [address] [facility] [facility] [address] [facility] [address] [facility] [address] [facility]. [facility] [address] [facility] [facility] YOU HAVE RECEIVED A MEDICAL SCREENING EXAM AND THE RESULTS INDICATE THAT YOU DO NOT HAVE A CONDITION THAT REQUIRES URGENT TREATMENT IN THE EMERGENCY DEPARTMENT. FURTHER EVALUATION AND TREATMENT OF YOUR CONDITION CAN WAIT UNTIL YOU ARE SEEN IN YOUR DOCTORS OFFICE WITHIN THE NEXT 1-2 DAYS. IT IS YOUR RESPONSIBILITY TO MAKE AN APPOINTMENT FOR FOLOW-UP CARE. IF YOU HAVE A PRIMARY DOCTOR --you should call your primary doctor and schedule and appointment IF YOU DO NOT HAVE A PRIMARY DOCTOR YOU CAN CALL OUR PHYSICIAN REFERRAL HOTLINE AT . IF YOU CAN NOT AFFORD TO SEE A PHYSICIAN YOU CAN CHOSE FROM THE FOLLOWING [facility]: [facility] [address] [place] [address] [facility] [address] [place] [address] [facility] [address] [place] [address] Additional Instructions: Follow up with Dr. Allen. Call your primary care doctor TOMORROW for an appointment during the next 1-2 days.See the doctor sooner or return here if your condition worsens before your appointment time. KATLIN MCLAUGHLIN PA-C Nov 01, 2018 18:39
== END 2018-11-01 17:07 | disposition home or self-care (01) ==
LOC: FTE 16:45 → E/R 17:07
DX: O99.89 Other specified diseases and conditions complicating pregnancy, childbirth and the puerperium (principal); Z00.00 Encounter for general adult medical examination without abnormal findings; Z87.59 Personal history of other complications of pregnancy, childbirth and the puerperium
CPT/HCPCS: 99282